=== PATIENT | female | born 1995 | race Caucasian/White ===

== ENCOUNTER 2016-12-09 18:49 | Emergency (ER) | payer SELFPAY ==
[~2016-12-09] VITALS: Ht 157.5 cm; Wt 103.4 kg
[~2016-12-09 18:49] MED LIST: BACTRIM DS TAB1 EACH PO; CEPHALEXIN500 MG PO; CIPRO500 MG PO; IMPLANON68 MG SQ; KEFLEX500 MG PO; MACROBID 100 M100 MG PO; NEXPLANON68 MG SUB-Q; NORCO 5-325 TA1 EACH PO; PRENATAL 19 TA1 EAC1 PO; PROMETHAZINE HC25 M1 PO; PROTONIX40 MG PO; PROZAC10 MG PO; TRAMADOL HCL50 MG PO
[2016-12-09] MEDS ORDERED: PROTONIX40 MG PO (20:35)
== END 2016-12-09 20:45 | disposition home or self-care (01) ==
LOC: ED 18:49
DX: R10.10 Upper abdominal pain, unspecified (principal); G89.29 Other chronic pain; F32.9 Major depressive disorder, single episode, unspecified; F17.200 Nicotine dependence, unspecified, uncomplicated; Z79.899 Other long term (current) drug therapy
CPT/HCPCS: 80053; 81001; 83690; 84703; 85025; 99283

== ENCOUNTER 2017-08-04 08:35 | Emergency (ER) | payer OTHER ==
[~2017-08-04] VITALS: Ht 157.5 cm; Wt 103.4 kg
[2017-08-04] MEDS ORDERED: TYLENOL EXTRA500 MG PO (08:44)
[2017-08-04] MEDS ORDERED: TYLENOL WITH C1 EACH PO (09:17)
== END 2017-08-04 09:22 | disposition home or self-care (01) ==
LOC: ED 08:35
PROC: 2W3MX1Z Immobilization of Left Lower Extremity using Splint (ICD-10-PCS; principal; 2017-08-04)
DX: S86.912A Strain of unspecified muscle(s) and tendon(s) at lower leg level, left leg, initial encounter (principal); F17.200 Nicotine dependence, unspecified, uncomplicated; Z79.899 Other long term (current) drug therapy; W18.30XA Fall on same level, unspecified, initial encounter; Y93.41 Activity, dancing
CPT/HCPCS: 29505; 73560; 96372; 99283; J1885

== ENCOUNTER 2017-08-06 22:44 | Emergency (ER) | payer OTHER ==
[~2017-08-06] VITALS: Ht 157.5 cm; Wt 105.2 kg
[~2017-08-06 22:44] MED LIST changes: +TYLENOL EXTRA500 MG PO; +TYLENOL WITH C1 EACH PO
== END 2017-08-06 23:44 | disposition home or self-care (01) ==
LOC: ED 22:44
DX: S83.92XA Sprain of unspecified site of left knee, initial encounter (principal); F17.200 Nicotine dependence, unspecified, uncomplicated; Z79.899 Other long term (current) drug therapy; X50.9XXA Other and unspecified overexertion or strenuous movements or postures, initial encounter; Y93.41 Activity, dancing
CPT/HCPCS: 99282

== ENCOUNTER 2020-11-17 18:01 | Inpatient (IN) | payer OTHER, MEDICAID ==
[~2020-11-17] VITALS: Ht 157.5 cm; Wt 117.9 kg
--- NOTE | 2020-11-18 12:56 | PR ---
[facility] [address] [facility] [place], [place] [address] Signed Progress Notes IP Datetime Report Generated by CPN: 11/18/2020 12:56 PROGRESS NOTES: [id number] Other Impressions: slow progress Procedures: Intrauterine Pressure Catheter; Sterile Vag Exam Plan: Augmentation VITAL SIGNS: [id number] Vital Signs: Reviewed; Within Normal Limits EXAM: [id number] Dilatation: 6.0 Effacement: 80 Station: -2 Contractions: q 1 to 2 min, mild MEMBRANES: [id number] Comments: Getting uncomfortable again. Making slow progress and contractions appear to be very poor quality. Will start low dose pitocin and redose epidural. It is not clear if the baby will tolerate stronger contractions. FETUS A: [id number] FHR Baseline: 125 Variability: Moderate 6-25bpm Accelerations: 15X15 Decelerations: Variable; Prolonged FHR Category: Category II Presentation: Vertex Comments on Fetus A: single episode of prolonged decel FETUS B: [id number] Signing Physician: Denice Ibrahim MD Copies: ~ *Electronically Signed* 11/18/20 1256 DENICE IBRAHIM MD PATIENT NAME: DEEPTHI BAKER EDI PROGRESS NOTE DATE OF : [birth year] PHYSICIAN: DENICE IBRAHIM MD RPT #: [id number] REPORT IS CONFIDENTIAL AND NOT TO BE RELEASED WITHOUT AUTHORIZATION
--- NOTE | 2020-11-19 08:59 | PR ---
[facility] [address] [facility] [place], [place] [address] Signed PP Progress Notes Datetime Report Generated by CPN: 11/19/2020 08:59 SUBJECTIVE: [id number] Pain: Within Normal Limits Nausea/Vomiting: Denies Vital Signs: [id number] Vital Signs: Reviewed; Within Normal Limits Cardiovascular: Not Done Respiratory: Not Done Abdomen/Uterus: Abnormal Lochia: Normal Vulva/Perineum: Not Done Breasts: Not Done CVA Tenderness: Not Done Extremities: Normal Incision: Not Applicable Progress: Abnormal Exam Comments: Fundus firm, NT @ U-1 H/H 11/33.3, WBC 9.4, plat 140k IMPRESSION/PLAN/PROCEDURES: [id number] Impression: Normal Progression; Difficulties Plan: Consult Procedures: None Progress Notes: Doing well other than breast feeding. Will work on this today. Her BPs are doing well. Signing Physician: Denice Ibrahim MD Copies: ~ *Electronically Signed* 11/19/20 0859 DENICE IBRAHIM MD PATIENT NAME: DEEPTHI BAKER EDI PROGRESS NOTE DATE OF : [birth year] PHYSICIAN: DENICE IBRAHIM MD RPT #: [id number] REPORT IS CONFIDENTIAL AND NOT TO BE RELEASED WITHOUT AUTHORIZATION
--- NOTE | 2020-11-20 10:03 | PR ---
[facility] [address] [facility] [place], [place] [address] Signed PP Progress Notes Datetime Report Generated by CPN: 11/20/2020 10:03 SUBJECTIVE: [id number] Pain: Within Normal Limits Nausea/Vomiting: Denies Vital Signs: [id number] Vital Signs: Reviewed; Within Normal Limits Cardiovascular: Not Done Respiratory: Not Done Abdomen/Uterus: Abnormal Lochia: Normal Vulva/Perineum: Not Done Breasts: Not Done CVA Tenderness: Not Done Extremities: Normal Incision: Not Applicable Progress: Abnormal Exam Comments: Fundus firm, NT @ U-2 IMPRESSION/PLAN/PROCEDURES: [id number] Impression: Normal Progression; Difficulties Plan: Discharge Procedures: None Progress Notes: Doing well though breast feeding not going well but she is not interested in pumping. She is mostly bottle feeding. She is ready for D/C. Signing Physician: Denice Ibrahim MD Copies: ~ *Electronically Signed* 11/20/20 1003 DENICE IBRAHIM MD PATIENT NAME: DEEPTHI BAKER EDI PROGRESS NOTE DATE OF : [birth year] PHYSICIAN: DENICE IBRAHIM MD RPT #: [id number] REPORT IS CONFIDENTIAL AND NOT TO BE RELEASED WITHOUT AUTHORIZATION
== END 2020-11-20 12:15 | disposition home or self-care (01) | DRG 807 ==
LOC: FBC 11-18 00:02
PROVIDERS: ADMIT Obstetrics & Gynecology; ATTEND Obstetrics & Gynecology
PROC: 10E0XZZ Delivery of Products of Conception, External Approach (ICD-10-PCS; principal; 2020-11-18)
PROC: 10907ZC Drainage of Amniotic Fluid, Therapeutic from Products of Conception, Via Natural or Artificial Opening (ICD-10-PCS; 2020-11-18)
PROC: 10H07YZ Insertion of Other Device into Products of Conception, Via Natural or Artificial Opening (ICD-10-PCS; 2020-11-18)
PROC: 3E0P7VZ Introduction of Hormone into Female Reproductive, Via Natural or Artificial Opening (ICD-10-PCS; 2020-11-18)
PROC: 00HU33Z Insertion of Infusion Device into Spinal Canal, Percutaneous Approach (ICD-10-PCS; 2020-11-18)
PROC: 3E0R3BZ Introduction of Anesthetic Agent into Spinal Canal, Percutaneous Approach (ICD-10-PCS; 2020-11-18)
DX: O15.1 Eclampsia complicating labor (principal); Z37.0 Single live birth; O76 Abnormality in fetal heart rate and rhythm complicating labor and delivery; Z3A.37 37 weeks gestation of pregnancy; O99.824 Streptococcus B carrier state complicating childbirth
CPT/HCPCS: 01960; 82803; 85027; A9270; J1644; J2540; J2795